=== PATIENT | male | born 1945 | race Caucasian/White ===

== ENCOUNTER 2017-12-27 14:05 | Inpatient (IN) | payer OTHER, BC ==
--- NOTE | 2017-12-27 14:13 | PDOC ---
History of Present Illness - General Chief Complaint: Pain Stated Complaint: ABD PAIN - History of Present Illness Initial Comments: 12/27/17 15:11 The patient is a 72 year old male with a history of HTN, HLD, DM who presents for evaluation of abdominal pain. The patient reports a 3 day history of poorly described upper abdominal pain that initial occurred after eating a Tuna sandwich. He has noted some nausea, but denies any vomiting, however given his continued symptoms, he presented to an urgent care who sent him to the ER for further evaluation. He states that he has never experienced any similar symptoms in the past. He otherwise denies fevers, chills, SOB, chest pain, vomiting, or changes with urination or bowel movements. Past History - Past Medical History Allergies/Adverse Reactions: Allergies Allergy/AdvReac Type Severity Reaction Status Date / Time codeine Allergy Mild Nausea Verified 12/27/17 14:06 Home Medications: Ambulatory Orders metFORMIN HCL [Metformin HCl] 2 gm PO DAILY 03/26/16 Atorvastatin Ca [Lipitor] 40 mg PO HS 12/27/17 Diclofenac Sodium 75 mg PO Q12H PRN 12/27/17 Losartan/Hydrochlorothiazide [Losartan-Hctz 100-25 mg Tab] 1 each PO DAILY 12/27 COPD: No Diabetes: Yes HTN: Yes Hypercholesterolemia: Yes Kidney Stones: Yes - Suicide/Smoking/Psychosocial Hx Smoking History: Never smoked Have you smoked in the past 12 months: No Information on smoking cessation initiated: No Hx Alcohol Use: No Drug/Substance Use Hx: No Substance Use Type: None Review of Systems - Review of Systems Comments:: 12/27/17 15:14 Constitutional: No fevers, chills, fatigue, malaise HEENT: No Rhinorrhea, nasal congestion, visual changes Cardiovascular: No chest pain, syncope, palpitations, lightheadedness Respiratory: No Cough, SOB, Hemoptysis, Gastrointestinal: Abdominal Pain, Nausea. No Vomiting, Constipation, Diarrhea, Melena Genitourinary: No Dysuria, Frequency, Urgency, Hesitancy, Hematuria, Flank pain Musculoskeletal: No Myalgia, arthralgia Skin: No rashes, itching, bruising, pallor Neurologic: No Headache, Dizziness, Numbness, Weakness, or Tingling Psychiatric: No Hallucinations. No SI or HI *Physical Exam - Vital Signs Last Vital Signs Temp Pulse Resp BP Pulse Ox 100.6 F H 74 18 132/76 98 12/27/17 14:05 12/27/17 14:05 12/27/17 14:05 12/27/17 14:05 12/27/17 14:05 - Physical Exam Comments: 12/27/17 15:15 General Appearance: Nourished. No Apparent Distress HEENT: No Pharyngeal Erythema, Tonsillar Exudate, Tonsillar Erythema Neck: No Cervical Lymphadenopathy Respiratory/Chest: Lungs Clear, Normal Breath Sounds. No Crackles, Rales, Rhonchi, Wheezing Cardiovascular: Regular Rhythm, Regular Rate. No Murmur, Gallops, Rubs Gastrointestinal/Abdominal: Normal Bowel Sounds. RUQ tenderness to palpation and epigastric tenderness to palpation. Hepatomegaly noted on exam. No Guarding, Rebound, Musculoskeletal: No CVA Tenderness Extremity: Normal Capillary Refill Integumentary: Normal Color, Dry, Warm Neurologic: Fully Oriented, Alert, Normal Mood/Affect, Normal Response, ED Treatment Course - LABORATORY CBC & Chemistry Diagram: 12/27/17 14:50 12/27/17 14:52 Medical Decision Making - Medical Decision Making 12/27/17 15:16 The patient is a 72 year old male with a history of HTN, HLD, DM who presents for evaluation of abdominal pain. Differential includes but is not limited to: Cholecystitis, Liver Pathology, Gastritis, Pancreatitis, Infectious, Metabolic derangement. Given the patient's history and physical exam, we will obtain a cbc, cmp, lipase, coags, troponin, lactate, blood cultures, gallbladder us to evaluate further. We will treat with iv fluids in the meantime and continue to monitor and reassess while here in the ED. 12/27/17 16:55 CBC demonstrates a wbc to 23.6. CMP demonstrates potassium of 3.1. Troponin is unremarkable. Gallbladder US demonstrates acute cholecystitis as read by our radiologist. Given the patient's symptoms, exam, and results, it is likely his symptoms are due to an acute cholecystitis. ID was consulted and recommended treatment with zosyn. We discussed the case with Dr. Rose with surgery who has been made aware of the case. We discussed the case with the admitting team who accepted the patient for admission. *DC/Admit/Observation/Transfer Diagnosis at time of Disposition: Acute cholecystitis - Discharge Dispostion Condition at time of disposition: Stable Decision to Admit order: Yes - Referrals - Patient Instructions - Post Discharge Activity
--- NOTE | 2017-12-27 14:16 | PDOC ---
Attending Attestation - Resident Resident Name: Kaden Sahu - ED Attending Attestation I have performed the following: I have examined & evaluated the patient, The case was reviewed & discussed with the resident, I agree w/resident's findings & plan, Exceptions are as noted - HPI HPI: 12/27/17 14:51 Sent for evaluation by urgent care center with epigastric and right upper quadrant pain, nausea without vomiting or diarrhea, decreased appetite, and elevated blood sugar. Pain has been present for several days, supposedly beginning after eating a tunafish sandwich. No prior pain of this nature History of koo-ogfsskl-[id number] diabetes for approximately 5 years, poorly controlled on sulfonylurea and metformin. Kidney stones in the distant past. Denies tobacco and alcohol, as well as other nonprescription drugs. Specifically denies past history of hepatitis, or other liver condition, peptic ulcer disease or other stomach problems, abdominal surgery. - Physicial Exam PE: 12/27/17 14:54 Physical exam shows a low-grade fever of 100.9 remainder vital signs normal. No pallor or icterus. ENT clear Abdomen nondistended with normal bowel sounds. There is a small midline ventral hernia that is freely reducible and nontender. Hepatomegaly is present. There is right upper quadrant tenderness to palpation, mild to moderate, without guarding or rebound, no CVAT. No lower quadrant tenderness. - Medical Decision Making 12/27/17 15:03 Assessment: Right upper quadrant pain, nausea, decreased appetite, hepatomegaly. Suggestive of liver inflammation. Possible gallbladder disease Plan: Labs and ultrasound. Further evaluation depending on results. IV fluids and analgesia. 12/27/17 16:05 White blood count 23,000. LFTs normal. Mild hyponatremia and hypokalemia are present. Ultrasound shows gallstones with dilated gallbladder and other signs of acute cholecystitis. Stones are not seen in the bile duct. Infectious disease consult was obtained in the emergency room. Intravenous fluids, potassium, and antibiotics begun. Admitted for observation and surgical consultation. 12/27/17 16:21
[2017-12-27] MEDS ORDERED: SODIUM CHLORIDE 1,000 ML IV STA (14:36)
[2017-12-27 15:07] LABS: ACTIVATED PTT 28.6 SECONDS (25.2-36.5)
[2017-12-27 15:11] LABS: HEMATOCRIT 36.4 % (35.4-49); HEMOGLOBIN 11.8 GM/dl (11.7-16.9); MCH 27.9 pg (25.7-33.7); MCHC 32.4 g/dl (32.0-35.9); MEAN CELL VOLUME 86.3 fl (80-96); MEAN PLT VOLUME 9.8 fl (7.5-11.1); PLATELET COUNT 199 K/MM3 (134-434); RBC 4.22 M/mm3 (4.00-5.60); RDW 13.6 % (11.9-15.9); WHITE BLOOD COUNT 23.6 K/mm3 (4.0-10.8)
[2017-12-27 15:12] LABS: INR 1.28 (0.82-1.09); PROTHROMBIN TIME (PATIENT) 14.3 SEC (10.2-13.0)
[2017-12-27 15:16] LABS: ALBUMIN 3.9 g/dl (3.5-5.0); ALK PHOS 51 U/L (32-92); ANION GAP 7 MMOL/L (8-16); BLOOD UREA NITROGEN 22 mg/dl (7-18); CALCIUM 8.4 mg/dl (8.4-10.2); CHLORIDE 97 mmol/L (98-107); CO2 27 mmol/L (22-28); CREATININE 1.1 mg/dl (0.6-1.3); GLUCOSE,RANDOM 156 mg/dl (74-106); POTASSIUM 3.1 mmol/L (3.5-5.1); SGOT/AST 23 U/L (10-42); SGPT/ALT 24 U/L (10-40); SODIUM 131 mmol/L (136-145); TOT PROT 6.7 g/dl (6.4-8.3)
[2017-12-27] MEDS ORDERED: KCL 10 MEQ IVPB 10 MEQ/100 ML INFUS.BAG IVPB SCH (15:30)
[2017-12-27 15:39] LABS: PLATELET ESTIMATE ADEQUATE
[2017-12-27] MEDS ORDERED: KCL 10 MEQ IVPB 10 MEQ/100 ML INFUS.BAG IVPB ONE (15:51)
[2017-12-27 16:13] LABS: URINE APPEARANCE Clear; URINE BILIRUBIN 1+ (NEGATIVE); URINE COLOR Yellow; URINE GLUCOSE (UA) Trace (NEGATIVE); URINE KETONE 1+ (NEGATIVE); URINE LEUK ESTERASE Negative (NEGATIVE); URINE NITRITE Negative (NEGATIVE); URINE UROBILINOGEN 0.2 (0.2-1.0)
[2017-12-27 16:16] LABS: URINE PROTEIN 2+ (NEGATIVE)
--- NOTE | 2017-12-27 16:17 | CON.ID ---
Consult Consult Specialty:: infectious diseases Reason for Consultation:: cholecystitis - History of Present Illness Chief Complaint: rt upper quadrant pain History of Present Illness: 72 yo male PMH HTN, HLD, DM who presents for evaluation of abdominal pain X 4days . The patient reports a 3 day history of poorly described upper abdominal pain with nausea, but denies any vomiting, however given his continued symptoms, he presented to an urgent care who sent him to the ER for further evaluation. He states that he has never experienced any similar symptoms in the past. no know history of gall stones. has had previous upper and lower endoscopy. no recent history of weight loss. He otherwise denies fevers, chills, SOB, chest pain, vomiting, or changes with urination or bowel movements. we were called to assess. mentions that the pain is quite sever says he does not have any other medical conditions - History Source History Provided By: Patient Limitations to Obtaining History: No Limitations - Alcohol/Substance Use Hx Alcohol Use: No - Smoking History Smoking history: Never smoked Have you smoked in the past 12 months: No Home Medications - Allergies Allergies/Adverse Reactions: Allergies Allergy/AdvReac Type Severity Reaction Status Date / Time codeine Allergy Mild Nausea Verified 12/27/17 14:06 - Home Medications Home Medications: Ambulatory Orders RX: metFORMIN HCL [Metformin HCl] 2 gm PO DAILY 03/26/16 RX: Atorvastatin Ca [Lipitor] 40 mg PO HS 12/27/17 RX: Glimepiride 4 mg PO DAILY 12/27/17 RX: Losartan/Hydrochlorothiazide [Losartan-Hctz 100-25 mg Tab] 1 each PO DAILY 12/27/17 Amoxicillin/Potassium Clav [Augmentin 875-125 Tablet] 1 each PO Q12H #14 tablet 12/30/17 Review of Systems - Review of Systems Constitutional: reports: No Symptoms Eyes: reports: No Symptoms HENT: reports: No Symptoms Neck: reports: No Symptoms Cardiovascular: reports: No Symptoms Respiratory: reports: No Symptoms Gastrointestinal: reports: Abdominal Pain, Nausea Genitourinary: reports: No Symptoms Musculoskeletal: reports: No Symptoms Integumentary: reports: No Symptoms Neurological: reports: No Symptoms Endocrine: reports: No Symptoms Hematology/Lymphatic: reports: No Symptoms Psychiatric: reports: No Symptoms Physical Exam Vital Signs: Vital Signs Temperature 100.6 F H 12/27/17 14:05 Pulse Rate 74 12/27/17 14:05 Respiratory Rate 18 12/27/17 14:05 Blood Pressure 132/76 12/27/17 14:05 O2 Sat by Pulse Oximetry (%) 98 12/27/17 14:05 Constitutional: Yes: Well Nourished, Calm, Mild Distress Eyes: Yes: Conjunctiva Clear HENT: Yes: Atraumatic, Normocephalic Neck: Yes: Supple, Trachea Midline Cardiovascular: Yes: Regular Rate and Rhythm Respiratory: Yes: Regular, CTA Bilaterally Gastrointestinal: Yes: Hypoactive Bowel Sounds, Tenderness, Other (ruq) Musculoskeletal: Yes: WNL Extremities: Yes: WNL Neurological: Yes: Alert, Oriented Psychiatric: Yes: Alert, Oriented Labs: CBC, BMP 12/27/17 14:50 12/27/17 14:52 Imaging - Results Chest X-ray: Report Reviewed, Image Reviewed Ultrasound: Report Reviewed, Image Reviewed Assessment/Plan Problem List - Problems (1) Calculus gallbladder and bile duct w/acute cholecystitis and obstructn Code(s): K80.63 - CALCULUS OF GB AND BILE DUCT W ACUTE CHOLECYST W OBSTRUCTION (2) Leukocytosis Code(s): D72.829 - ELEVATED WHITE BLOOD CELL COUNT, UNSPECIFIED Qualifiers: Leukocytosis type: bandemia Qualified Code(s): D72.825 - Bandemia (3) Fever and chills Code(s): R50.9 - FEVER, UNSPECIFIED (4) Acute cholecystitis Code(s): K81.0 - ACUTE CHOLECYSTITIS (5) HTN (hypertension) Code(s): I10 - ESSENTIAL (PRIMARY) HYPERTENSION Qualifiers: Hypertension type: essential hypertension Qualified Code(s): I10 - Essential (primary) hypertension (6) HLD (hyperlipidemia) Code(s): E78.5 - HYPERLIPIDEMIA, UNSPECIFIED Qualifiers: Hyperlipidemia type: pure hypercholesterolemia Qualified Code(s): E78.00 - Pure hypercholesterolemia, unspecified; E78.0 - Pure hypercholesterolemia (7) Diabetes mellitus Code(s): E11.9 - TYPE 2 DIABETES MELLITUS WITHOUT COMPLICATIONS plan npo abx surgery consult will need surgery hydration rest as per the team
--- NOTE | 2017-12-27 16:47 | CONSULT ---
Consult Consult Specialty:: General Surgery Referred by:: Adelina Reason for Consultation:: Acute Cholecystitis - History of Present Illness Chief Complaint: Abdominal Pain History of Present Illness: 72 yo male PMH HTN, HLD, DM who presents for evaluation of abdominal pain X 4days . The patient reports a 3 day history of poorly described upper abdominal pain that initial occurred after eating a Tuna sandwich. He has noted some nausea, but denies any vomiting, however given his continued symptoms , he presented to an urgent care who sent him to the ER for further evaluation. He states that he has never experienced any similar symptoms in the past. no know history of gall stones. has had previous upper and lower endoscopy. no recent history of weight loss. He otherwise denies fevers, chills, SOB, chest pain, vomiting, or changes with urination or bowel movements. we were called to assess. - History Source History Provided By: Patient, Medical Record Limitations to Obtaining History: No Limitations - Alcohol/Substance Use Hx Alcohol Use: No History of Substance Use: reports: None - Smoking History Smoking history: Never smoked Have you smoked in the past 12 months: No - Social History Usual Living Arrangement: With Spouse ADL: Independent Place of : [facility] History of Recent Travel: No Home Medications - Allergies Allergies/Adverse Reactions: Allergies Allergy/AdvReac Type Severity Reaction Status Date / Time codeine Allergy Mild Nausea Verified 12/27/17 14:06 - Home Medications Home Medications: Ambulatory Orders metFORMIN HCL [Metformin HCl] 2 gm PO DAILY 03/26/16 Atorvastatin Ca [Lipitor] 40 mg PO HS 12/27/17 Diclofenac Sodium 75 mg PO Q12H PRN 12/27/17 Glimepiride 4 mg PO DAILY 12/27/17 Losartan/Hydrochlorothiazide [Losartan-Hctz 100-25 mg Tab] 1 each PO DAILY 12/27 Review of Systems - Review of Systems Constitutional: reports: Chills, Fever. denies: Unintentional Wgt. Loss Eyes: denies: Blurred Vision, Recent Change in Vision HENT: denies: Difficult Swallowing, Throat Pain, Toothache Neck: denies: Pain on Movement, Tenderness Cardiovascular: denies: Chest Pain, Palpitations Respiratory: denies: Cough, SOB Gastrointestinal: reports: Abdominal Pain, Nausea Genitourinary: denies: Burning, Discharge, Dysuria Breasts: reports: No Symptoms Reported. denies: Pain Musculoskeletal: denies: Back Pain, Muscle Pain Integumentary: denies: Eczema, Erythema, Lesions Neurological: denies: Seizure, Syncope Endocrine: denies: Unexplained Weight Gain, Unexplained Weight Loss Hematology/Lymphatic: denies: Easily Bruised, Excessive Bleeding Psychiatric: denies: Anxiety, Depression Physical Exam Vital Signs: Vital Signs Temperature 100.6 F H 12/27/17 14:05 Pulse Rate 74 12/27/17 14:05 Respiratory Rate 18 12/27/17 14:05 Blood Pressure 132/76 12/27/17 14:05 O2 Sat by Pulse Oximetry (%) 98 12/27/17 14:05 Constitutional: Yes: Well Nourished, No Distress, Calm, Other Eyes: Yes: Conjunctiva Clear, EOM Intact HENT: Yes: Atraumatic, Normocephalic Neck: Yes: Supple, Trachea Midline Cardiovascular: Yes: Regular Rate and Rhythm, S1, S2 Respiratory: Yes: Regular, CTA Bilaterally Gastrointestinal: Yes: Normal Bowel Sounds, Soft, Tenderness (RUQ +murphys sign) , Tenderness, Epigastrium, Tenderness, Rebound ...Rectal Exam: Yes: Deferred Renal/: No: CVA Tenderness - Left, CVA Tenderness - Right Musculoskeletal: No: Muscle Pain, Muscle Weakness Extremities: No: Cool, Cyanosis Edema: No Peripheral Pulses WNL: Yes Wound/Incision: Yes: Clean/Dry, Well Approximated Neurological: Yes: Alert, Oriented Psychiatric: Yes: Alert, Oriented Labs: CBC, BMP 12/27/17 14:50 12/27/17 14:52 Imaging - Results Ultrasound: Report Reviewed, Image Reviewed (GB wall thickening) MRI: Pending Problem List - Problems (1) Calculus gallbladder and bile duct w/acute cholecystitis and obstructn Assessment/Plan: 72yo male with Acute calculous cholecystits, CBD 0.7 NPO and IVF hydration IV antibiotics MRCP for confirm no CBD obstruction Glycemic control Discussed with patient risks, benefits and alternatives of laparoscopic possible open cholecystectomy, including but not limited to bleeding, infection , injury to adjacent structures, leak or injury, intraabdominal abscess, incisional hernia, need for further procedures, ; alternatives include antibiotics, delayed or no surgery - risks of this include failure of nonoperative therapy, perforation, sepsis, recurrence, . Patient desires to proceed with operation - will take to OR for above. Informed consent signed for same. Code(s): K80.63 - CALCULUS OF GB AND BILE DUCT W ACUTE CHOLECYST W OBSTRUCTION (2) Leukocytosis Code(s): D72.829 - ELEVATED WHITE BLOOD CELL COUNT, UNSPECIFIED Qualifiers: Leukocytosis type: bandemia Qualified Code(s): D72.825 - Bandemia (3) Fever and chills Code(s): R50.9 - FEVER, UNSPECIFIED (4) Acute cholecystitis Code(s): K81.0 - ACUTE CHOLECYSTITIS (5) HTN (hypertension) Code(s): I10 - ESSENTIAL (PRIMARY) HYPERTENSION Qualifiers: Hypertension type: essential hypertension Qualified Code(s): I10 - Essential (primary) hypertension (6) HLD (hyperlipidemia) Code(s): E78.5 - HYPERLIPIDEMIA, UNSPECIFIED Qualifiers: Hyperlipidemia type: pure hypercholesterolemia Qualified Code(s): E78.00 - Pure hypercholesterolemia, unspecified; E78.0 - Pure hypercholesterolemia (7) Diabetes mellitus Code(s): E11.9 - TYPE 2 DIABETES MELLITUS WITHOUT COMPLICATIONS
[2017-12-27 16:53] LABS: LIPASE 78 U/L (73-393)
[2017-12-27 17:00] LABS: URINE BACTERIA FEW /hpf (NEGATIVE); URINE WBC 0-2 (0-2)
[2017-12-27] MEDS ORDERED: PIPERACILLIN/TAZOBACTAM 3.375 GM VIAL IVPB ONE (17:13)
[2017-12-27] MEDS ORDERED: ACETAMINOPHEN INJECTION 100 ML IVPB ONE (17:13)
[2017-12-27] MEDS ORDERED: ACETAMINOPHEN 1000 MG/100 ML VIAL (NON FORMULARY) IVPB ONE (17:13)
[2017-12-27] MEDS ORDERED: PIPERACILLIN/TAZOB 3.375 GM 3.375 GM in DEXTROSE 5%-WATER - 50 ML IVPB ONE (17:13)
[2017-12-27] MEDS ORDERED: PIPERACILLIN/TAZOB 3.375 GM 3.375 GM/50 ML BAG IVPB SCH (18:00)
[2017-12-27] MEDS ORDERED: POTASSIUM CHLORIDE 10 MEQ in SODIUM CHLORIDE 1,000 ML IVPB SCH (18:30)
[2017-12-27] MEDS: SODIUM CHLORIDE 0.9%/KCL 20 MEQ/1,000 ML INFUS.BAG IV SCH (18:45)
--- NOTE | 2017-12-27 19:56 | PN ---
Teaching Attending Note Name of Resident: Madhavi Kwan ATTENDING PHYSICIAN STATEMENT I saw and evaluated the patient. I reviewed the resident's note and discussed the case with the resident. I agree with the resident's findings and plan as documented. SUBJECTIVE: Patient is a 72 year old man with a history of HTN, HLD, DM who presented to [place] ER for evaluation of abdominal pain. Sonogram showed cholecystitis and he is being transferred to [facility] for surgery. The patient reports a 3 day history of poorly described upper abdominal pain that initial occurred after eating a Tuna sandwich. He has noted some nausea, but denies any vomiting, however given his continued symptoms, he presented to an urgent care who sent him to the ER for further evaluation. He states that he has never experienced any similar symptoms in the past. He otherwise denies fevers, chills, SOB, chest pain, vomiting, or changes with urination or bowel movements. OBJECTIVE: Alert and in no acute distress Vital Signs Period Temp Pulse Resp BP Sys/Tiwari Pulse Ox Last 24 Hr 98.5 F-102 F 74-87 16-18 121-132/58-77 96-99 HEENT: No Jaundice, eye redness or discharge, PERRLA, EOMI. Normocephalic, atraumatic. External ears are normal and hearing is grossly intact. No nasal discharge. Neck: Supple, nontender. No palpable adenopathy or thyromegaly. No JVD Chest: Good effort. Clear to auscultation and percussion. Heart: Regular. No S3, rub or murmur Abdomen: Not distended, soft, RUQ tenderness and no HSM. No rebound or guarding. Normoactive bowel sounds. Ext: Peripheral pulses intact. No leg edema. Skin: Warm and dry. No petechiae, rash or ecchymosis. Neuro: Alert. Oriented x3. CN 2-12 grossly intact. Sensation grossly intact in all four extremities and DTR are symmetric. Current Medications Generic Name Dose Route Start Last Admin Trade Name Freq PRN Reason Stop Dose Admin Piperacillin Sod/Tazobactam Sod 3.375 gm in 50 mls @ 100 mls/hr 12/27/17 18: 00 Zosyn 3.375gm Ivpb (Pre-Docked) IVPB Q8H-IV CRYSTAL Protocol Potassium Chloride/Sodium Chloride 20 meq in 1,000 mls @ 100 mls/hr 12/27/17 18:45 12/27/17 18:45 Ns+20 Meq Kcl - IV 100 mls/hr ASDIR CRYSTAL Administration Home Medications Medication Instructions Recorded metFORMIN HCL [Metformin HCl] 2 gm PO DAILY 03/26/16 Atorvastatin Ca [Lipitor] 40 mg PO HS 12/27/17 Diclofenac Sodium 75 mg PO Q12H PRN 12/27/17 Losartan/Hydrochlorothiazide 1 each PO DAILY 12/27/17 [Losartan-Hctz 100-25 mg Tab] Abnormal Lab Results 12/27/17 12/27/17 12/27/17 14:50 14:50 14:52 WBC 23.6 H Neutrophils % (Manual) 90.0 H Lymphocytes % (Manual) 4.0 L PT with INR 14.3 H INR 1.28 H Sodium 131 L Potassium 3.1 L Chloride 97 L Anion Gap 7 L BUN 22 H Random Glucose 156 H Urine Protein Urine Ketones Urine Blood Urine Bilirubin 12/27/17 15:45 WBC Neutrophils % (Manual) Lymphocytes % (Manual) PT with INR INR Sodium Potassium Chloride Anion Gap BUN Random Glucose Urine Protein 2+ H Urine Ketones 1+ H Urine Blood Trace-lysed H Urine Bilirubin 1+ H ASSESSMENT AND PLAN: 1. Cholecystitis - Confirmed by sonogram. Will continue Zosyn and IV NS. Will be seen by surgery for cholecystectomy. Elevated INR unexplained - will monitor. Hyponatremia and hypokalemia likely due to HCTZ. Hold HCTZ and give KCL. Restrict free water intake. Will check Mg+ and phosphate levels. 2. DM - For now, we will hold the home diabetes drugs and implement sliding scale insulin regimen. Provide comprehensive diabetes care with patient teaching and counseling about the importance of euglycemia, eye care and foot care. 3. DVT prophylaxis - Heparin 5000u sq tid. 4. Advance directives - Full code
[2017-12-27] MEDS ORDERED: LACTATED RINGERS SOLUTION 1,000 ML IV SCH (22:45)
[2017-12-27] MEDS ORDERED: ACETAMINOPHEN 1000 MG/100 ML VIAL (NON FORMULARY) IVPB PRN (23:07)
[2017-12-27 23:55] VITALS: BMI 28.1
--- NOTE | 2017-12-28 01:25 | HP ---
CHIEF COMPLAINT:RUQ pain PCP: HISTORY OF PRESENT ILLNESS: Patient is a 72 year old male with past medical history of DM, HTN, and HLD presented with RUQ pain one day ago. Patient noted sudden onset, cramping, 7/10 RUQ pain Tuesday night. Pain was constant, no aggravating/alleviating factors. He denies vomiting, diarrhea, fever and chills. Few hours prior, patient went to urgent care due to persistence of pain where he was told to go to the ED for further evaluation. Patient was seen at [facility] ED where RUQ US showed acute calculus cholecytitis. Surgery was consulted and patient was transferred to [facility] for cholecystectomy. Patient denies chest pain, SOB, palpitations, diarrhea, constipation, fever, chills. Denies any recent travel or sick contacts. ER course was notable for: (1) (2) (3) Recent Travel:denies any recent travel PAST MEDICAL HISTORY: DM Hypertension Hyperlipidemia PAST SURGICAL HISTORY: Kidney stone removal, R (1993) Social History: Smoking:nonsmoker Alcohol:non EtOH drinker Drugs: denies illicit drug use Family History:[place] Allergies codeine Allergy (Mild, Verified 12/27/17 14:06) Nausea HOME MEDICATIONS: Home Medications Medication Instructions Recorded metFORMIN HCL [Metformin HCl] 2 gm PO DAILY 03/26/16 Atorvastatin Ca [Lipitor] 40 mg PO HS 12/27/17 Diclofenac Sodium 75 mg PO Q12H PRN 12/27/17 Glimepiride 4 mg PO DAILY 12/27/17 Losartan/Hydrochlorothiazide 1 each PO DAILY 12/27/17 [Losartan-Hctz 100-25 mg Tab] REVIEW OF SYSTEMS CONSTITUTIONAL: Absent: fever, chills, diaphoresis, generalized weakness, malaise, loss of appetite, weight change HEENT: Absent: rhinorrhea, nasal congestion, throat pain, throat swelling, difficulty swallowing, mouth swelling, ear pain, eye pain, visual changes CARDIOVASCULAR: Absent: chest pain, syncope, palpitations, irregular heart rate, lightheadedness , peripheral edema RESPIRATORY: Absent: cough, shortness of breath, dyspnea with exertion, orthopnea, wheezing, stridor, hemoptysis GASTROINTESTINAL:abdominal pain Absent: abdominal distension, nausea, vomiting, diarrhea, constipation, melena, hematochezia GENITOURINARY: Absent: dysuria, frequency, urgency, hesitancy, hematuria, flank pain, genital pain MUSCULOSKELETAL: Absent: myalgia, arthralgia, joint swelling, back pain, neck pain SKIN: Absent: rash, itching, pallor HEMATOLOGIC/IMMUNOLOGIC: Absent: easy bleeding, easy bruising, lymphadenopathy, frequent infections ENDOCRINE: Absent: unexplained weight gain, unexplained weight loss, heat intolerance, cold intolerance NEUROLOGIC: Absent: headache, focal weakness or paresthesias, dizziness, unsteady gait, seizure, mental status changes, bladder or bowel incontinence PSYCHIATRIC: Absent: anxiety, depression, suicidal or homicidal ideation, hallucinations. PHYSICAL EXAMINATION Vital Signs - 24 hr 12/27/17 12/27/17 12/27/17 14:05 17:10 18:00 Temperature 100.6 F H 102 F H 98.5 F Pulse Rate 74 Pulse Rate [ 87 86 Left Apical] Respiratory 18 16 17 Rate Blood Pressure 132/76 Blood Pressure 121/58 126/77 [Right Arm] O2 Sat by Pulse 98 99 96 Oximetry (%) 12/27/17 12/27/17 12/27/17 20:30 21:30 23:14 Temperature 98.8 F 98.4 F Pulse Rate 79 72 Pulse Rate [ 79 Left Apical] Respiratory 18 20 Rate Blood Pressure 132/68 148/69 Blood Pressure 132/68 [Right Arm] O2 Sat by Pulse 97 97 Oximetry (%) 12/28/17 00:16 Temperature 102.7 F H Pulse Rate Pulse Rate [ Left Apical] Respiratory Rate Blood Pressure Blood Pressure [Right Arm] O2 Sat by Pulse Oximetry (%) GENERAL: Awake, alert, and fully oriented, in no acute distress. HEAD: Normal with no signs of trauma. EYES: PERRLA, EOMI, sclera anicteric, conjunctiva clear. No lid lag. EARS, NOSE, THROAT: Ears normal, nares patent, oropharynx clear without exudates. Moist mucous membranes. NECK: Normal range of motion, supple without lymphadenopathy, JVD, or masses. LUNGS: Breath sounds equal, clear to auscultation bilaterally. No wheezes, and no crackles. No accessory muscle use. HEART: Regular rate and rhythm, normal S1 and S2 without murmur, rub or gallop. ABDOMEN: Soft LUQ/LLQ, +tenderness RUQ, mildly distended RUQ/RLQ, normoactive bowel sounds, no guarding, no rebound, no masses. No hepatomegaly or splenomegaly. MUSCULOSKELETAL: Normal range of motion at all joints. No bony deformities or tenderness. No CVA tenderness. UPPER EXTREMITIES: 2+ pulses, warm, well-perfused. No cyanosis. No clubbing. No peripheral edema. LOWER EXTREMITIES: 2+ pulses, warm, well-perfused. No calf tenderness. No peripheral edema. NEUROLOGICAL: Cranial nerves II-XII intact. Normal speech. Normal gait. PSYCHIATRIC: Cooperative. Good eye contact. Appropriate mood and affect. SKIN: Warm, dry, normal turgor, no rashes or lesions. Laboratory Results - last 24 hr 12/27/17 12/27/17 12/27/17 14:50 14:50 14:52 WBC 23.6 H RBC 4.22 Hgb 11.8 Hct 36.4 MCV 86.3 MCH 27.9 MCHC 32.4 RDW 13.6 Plt Count 199 MPV 9.8 Absolute Neuts (auto) 21.2 Neutrophils % No Result Required. Neutrophils % (Manual) 90.0 H Lymphocytes % No Result Required. Lymphocytes % (Manual) 4.0 L Monocytes % (Manual) 6 Platelet Estimate Adequate PT with INR 14.3 H INR 1.28 H PTT (Actin FS) 28.6 Sodium Potassium Chloride Carbon Dioxide Anion Gap BUN Creatinine Creat Clearance w eGFR Random Glucose Lactic Acid Calcium Total Bilirubin AST ALT Alkaline Phosphatase Creatine Kinase Troponin I < 0.03 Total Protein Albumin Lipase Urine Color Urine Appearance Urine pH Ur Specific [place] Urine Protein Urine Glucose (UA) Urine Ketones Urine Blood Urine Nitrite Urine Bilirubin Urine Urobilinogen Ur Leukocyte Esterase Urine RBC Urine WBC Urine Bacteria 12/27/17 12/27/17 12/27/17 14:52 14:52 15:30 WBC RBC Hgb Hct MCV MCH MCHC RDW Plt Count MPV Absolute Neuts (auto) Neutrophils % Neutrophils % (Manual) Lymphocytes % Lymphocytes % (Manual) Monocytes % (Manual) Platelet Estimate PT with INR INR PTT (Actin FS) Sodium 131 L Potassium 3.1 L Chloride 97 L Carbon Dioxide 27 Anion Gap 7 L BUN 22 H Creatinine 1.1 Creat Clearance w eGFR > 60 Random Glucose 156 H Lactic Acid 1.8 Calcium 8.4 Total Bilirubin 1.0 AST 23 ALT 24 Alkaline Phosphatase 51 Creatine Kinase 45 Troponin I Total Protein 6.7 Albumin 3.9 Lipase 78 Urine Color Urine Appearance Urine pH Ur Specific [place] Urine Protein Urine Glucose (UA) Urine Ketones Urine Blood Urine Nitrite Urine Bilirubin Urine Urobilinogen Ur Leukocyte Esterase Urine RBC Urine WBC Urine Bacteria 12/27/17 15:45 WBC RBC Hgb Hct MCV MCH MCHC RDW Plt Count MPV Absolute Neuts (auto) Neutrophils % Neutrophils % (Manual) Lymphocytes % Lymphocytes % (Manual) Monocytes % (Manual) Platelet Estimate PT with INR INR PTT (Actin FS) Sodium Potassium Chloride Carbon Dioxide Anion Gap BUN Creatinine Creat Clearance w eGFR Random Glucose Lactic Acid Calcium Total Bilirubin AST ALT Alkaline Phosphatase Creatine Kinase Troponin I Total Protein Albumin Lipase Urine Color Yellow Urine Appearance Clear Urine pH 5.0 Ur Specific [place] 1.020 Urine Protein 2+ H Urine Glucose (UA) Trace Urine Ketones 1+ H Urine Blood Trace-lysed H Urine Nitrite Negative Urine Bilirubin 1+ H Urine Urobilinogen 0.2 Ur Leukocyte Esterase Negative Urine RBC 2-5 Urine WBC 0-2 Urine Bacteria Few CBC, BMP 12/27/17 14:50 12/27/17 14:52 ASSESSMENT/PLAN: Patient is a 72 year old male with past medical history of DM, HTN, and HLD presented with sudden RUQ pain one day ago. #Acute Cholecystitis: -RUQ US showed acute calculus cholecytitis, CBD appears slightly dilated -Dr. Rose consulted. Patient is for cholecystectomy. -EKG, coag studies, type & screen, NPO ordered. -Dr. Kellogg consult appreciated. -Will continue to correct hypoNa and hypoK with KCl/NS -Zosyn 3.375gm started at the ED, will continue q8h #DM: chronic, glu 156 -hold home medications -start sliding scale insulin -monitor BGM ACHS #Hypertension: chronic -continue Losartan/HCTZ #FEN -IV NS (0.9%) at 75 ml/hr -hypoNa, hypoK-- given NS/KCl, routine BMP monitoring -NPO for now #Prophylaxis -Heparin 5000 units sq tid #Disposition -admit to med-surg -full code Visit type - Emergency Visit Emergency Visit: Yes ED Registration Date: 12/27/17 Care time: The patient presented to the Emergency Department on the above date and was hospitalized for further evaluation of their emergent condition. - New Patient This patient is new to me today: Yes Date on this admission: 12/28/17 - Critical Care Critical Care patient: No Hospitalist Screening - Colonoscopy Questionnaire Colonoscopy Questionnaire: Colonoscopy Questionnaire - Patient: 50 - 75 years old and never had a screening colonoscopy: Unknown History of colon or rectal polyps, or CA: Unknown History of IBD, Crohn's disease or UC: Unknown History of abdominal radiation therapy as a child: Unknown - Relative: 1 with colon or rectal CA, or polyps at age 60 or younger: Unknown Colon or rectal CA diagnosed at age 45 or younger: Unknown Multiple relatives with colon or rectal CA: Unknown - Outcome: Screening Result: Negative Screen
[2017-12-28] MEDS ORDERED: PIPERACILLIN/TAZOBACTAM 3.375 GM VIAL IVPB ONE ×2 (01:45→09:27)
[2017-12-28] MEDS ORDERED: DEXTROSE 5%-WATER - 50 ML IVPB ONE ×2 (01:45→09:27)
[2017-12-28] MEDS ORDERED: PIPERACILLIN/TAZOB 3.375 GM 3.375 GM in DEXTROSE 5%-WATER - 50 ML IVPB SCH (02:00)
[2017-12-28] MEDS: PIPERACILLIN/TAZOB 3.375 GM 3.375 GM in DEXTROSE 5%-WATER - 50 ML IVPB SCH ×3 (02:17→20:08)
[2017-12-28] MEDS: SODIUM CHLORIDE 0.9%/KCL 20 MEQ/1,000 ML INFUS.BAG IV SCH (04:50)
[2017-12-28] MEDS: HEPARIN NA (PORCINE) 5,000 UNITS/ML 1ML VIAL SQ SCH ×3 (05:47→22:06)
[2017-12-28] MEDS: INSULIN SLIDING SCALE (NOVOLOG) 1 VIAL SQ SCH ×2 (06:33→11:02)
[2017-12-28 08:51] LABS: HEMATOCRIT 34.3 % (35.4-49); HEMOGLOBIN 10.8 GM/dL (11.7-16.9); MCH 26.9 pg (25.7-33.7); MCHC 31.6 g/dl (32.0-35.9); MEAN PLT VOLUME 9.6 fl (7.5-11.1); PLATELET COUNT 164 K/MM3 (134-434); RBC 4.03 M/mm3 (4.00-5.60); RDW 13.9 % (11.9-15.9); WHITE BLOOD COUNT 20.4 K/mm3 (4.0-10.0)
[2017-12-28 10:11] LABS: CHLORIDE 105 mmol/L (98-107); POTASSIUM 3.6 mmol/L (3.5-5.1); SODIUM 141 mmol/L (136-145)
[2017-12-28 10:17] LABS: ANION GAP 14 MMOL/L (8-16); BLOOD UREA NITROGEN 16 mg/dL (7-18); CALCIUM 8.3 mg/dL (8.5-10.1); CO2 22 mmol/L (21-32); CREATININE 0.9 mg/dL (0.7-1.3); GLUCOSE,RANDOM 107 mg/dL (74-106); MAGNESIUM 2.2 mg/dL (1.8-2.4); PHOSPHOROUS 2.8 mg/dL (2.5-4.9)
--- NOTE | 2017-12-28 10:39 | PN ---
Physical Exam: SUBJECTIVE: Patient seen and examined at bedside, no overnight issues. Reports pain improved. Hungry as PO intake has been reduced for several days and Pt is now NPO pending Sx. OBJECTIVE: Vital Signs Period Temp Pulse Resp BP Sys/Tiwari Pulse Ox Last 24 Hr 98.4 F-102.7 F 69-87 16-20 121-150/58-77 96-99 GENERAL: Awake, alert, and fully oriented, in no acute distress. HEAD: Normal with no signs of trauma. EYES: PERRLA, EOMI, sclera anicteric, conjunctiva clear. No lid lag. EARS, NOSE, THROAT: Ears normal, nares patent, oropharynx clear without exudates. Moist mucous membranes. NECK: Normal range of motion, supple without lymphadenopathy, JVD, or masses. LUNGS: Breath sounds equal, clear to auscultation bilaterally. No wheezes, and no crackles. No accessory muscle use. HEART: Regular rate and rhythm, normal S1 and S2 without murmur, rub or gallop. ABDOMEN: Soft LUQ/LLQ, +tenderness RUQ, mildly distended RUQ/RLQ, normoactive bowel sounds, no guarding, no rebound, no masses. No hepatomegaly or splenomegaly. MUSCULOSKELETAL: Normal range of motion at all joints. No bony deformities or tenderness. No CVA tenderness. UPPER EXTREMITIES: 2+ pulses, warm, well-perfused. No cyanosis. No clubbing. No peripheral edema. LOWER EXTREMITIES: 2+ pulses, warm, well-perfused. No calf tenderness. No peripheral edema. NEUROLOGICAL: Cranial nerves II-XII intact. Normal speech. Normal gait. PSYCHIATRIC: Cooperative. Good eye contact. Appropriate mood and affect. SKIN: Warm, dry, normal turgor, no rashes or lesions. Laboratory Results - last 24 hr 12/27/17 12/27/17 12/27/17 14:50 14:50 14:52 WBC 23.6 H RBC 4.22 Hgb 11.8 Hct 36.4 MCV 86.3 MCH 27.9 MCHC 32.4 RDW 13.6 Plt Count 199 MPV 9.8 Absolute Neuts (auto) 21.2 Neutrophils % No Result Required. Neutrophils % (Manual) 90.0 H Lymphocytes % No Result Required. Lymphocytes % (Manual) 4.0 L Monocytes % (Manual) 6 Platelet Estimate Adequate PT with INR 14.3 H INR 1.28 H PTT (Actin FS) 28.6 Sodium Potassium Chloride Carbon Dioxide Anion Gap BUN Creatinine Creat Clearance w eGFR POC Glucometer Random Glucose Lactic Acid Calcium Total Bilirubin AST ALT Alkaline Phosphatase Creatine Kinase Troponin I < 0.03 Total Protein Albumin Lipase Urine Color Urine Appearance Urine pH Ur Specific [place] Urine Protein Urine Glucose (UA) Urine Ketones Urine Blood Urine Nitrite Urine Bilirubin Urine Urobilinogen Ur Leukocyte Esterase Urine RBC Urine WBC Urine Bacteria Blood Type Antibody Screen 12/27/17 12/27/17 12/27/17 14:52 14:52 15:30 WBC RBC Hgb Hct MCV MCH MCHC RDW Plt Count MPV Absolute Neuts (auto) Neutrophils % Neutrophils % (Manual) Lymphocytes % Lymphocytes % (Manual) Monocytes % (Manual) Platelet Estimate PT with INR INR PTT (Actin FS) Sodium 131 L Potassium 3.1 L Chloride 97 L Carbon Dioxide 27 Anion Gap 7 L BUN 22 H Creatinine 1.1 Creat Clearance w eGFR > 60 POC Glucometer Random Glucose 156 H Lactic Acid 1.8 Calcium 8.4 Total Bilirubin 1.0 AST 23 ALT 24 Alkaline Phosphatase 51 Creatine Kinase 45 Troponin I Total Protein 6.7 Albumin 3.9 Lipase 78 Urine Color Urine Appearance Urine pH Ur Specific [place] Urine Protein Urine Glucose (UA) Urine Ketones Urine Blood Urine Nitrite Urine Bilirubin Urine Urobilinogen Ur Leukocyte Esterase Urine RBC Urine WBC Urine Bacteria Blood Type Antibody Screen 12/27/17 12/28/17 12/28/17 15:45 05:34 07:56 WBC RBC Hgb Hct MCV MCH MCHC RDW Plt Count MPV Absolute Neuts (auto) Neutrophils % Neutrophils % (Manual) Lymphocytes % Lymphocytes % (Manual) Monocytes % (Manual) Platelet Estimate PT with INR INR PTT (Actin FS) Sodium Potassium Chloride Carbon Dioxide Anion Gap BUN Creatinine Creat Clearance w eGFR POC Glucometer 102 Random Glucose Lactic Acid Calcium Total Bilirubin AST ALT Alkaline Phosphatase Creatine Kinase Troponin I Total Protein Albumin Lipase Urine Color Yellow Urine Appearance Clear Urine pH 5.0 Ur Specific [place] 1.020 Urine Protein 2+ H Urine Glucose (UA) Trace Urine Ketones 1+ H Urine Blood Trace-lysed H Urine Nitrite Negative Urine Bilirubin 1+ H Urine Urobilinogen 0.2 Ur Leukocyte Esterase Negative Urine RBC 2-5 Urine WBC 0-2 Urine Bacteria Few Blood Type A POSITIVE Antibody Screen Negative 12/28/17 12/28/17 07:56 07:56 WBC 20.4 H RBC 4.03 Hgb 10.8 L Hct 34.3 L MCV 85.0 MCH 26.9 MCHC 31.6 L RDW 13.9 Plt Count 164 MPV 9.6 Absolute Neuts (auto) Neutrophils % Neutrophils % (Manual) Lymphocytes % Lymphocytes % (Manual) Monocytes % (Manual) Platelet Estimate PT with INR INR PTT (Actin FS) Sodium 141 Potassium 3.6 Chloride 105 Carbon Dioxide Anion Gap BUN Creatinine Creat Clearance w eGFR POC Glucometer Random Glucose Lactic Acid Calcium Total Bilirubin AST ALT Alkaline Phosphatase Creatine Kinase Troponin I Total Protein Albumin Lipase Urine Color Urine Appearance Urine pH Ur Specific [place] Urine Protein Urine Glucose (UA) Urine Ketones Urine Blood Urine Nitrite Urine Bilirubin Urine Urobilinogen Ur Leukocyte Esterase Urine RBC Urine WBC Urine Bacteria Blood Type Antibody Screen Active Medications Generic Name Dose Route Start Last Admin Trade Name Freq PRN Reason Stop Dose Admin Acetaminophen 1,000 mg 12/27/17 23:07 12/28/17 00:11 Ofirmev Injection - IVPB 1,000 mg Q6H PRN Administration PAIN OR FEVER Heparin Sodium (Porcine) 5,000 unit 12/28/17 06:00 12/28/17 05:47 Heparin - SQ 5,000 unit TID CRYSTAL Administration Potassium Chloride/Sodium Chloride 20 meq in 1,000 mls @ 100 mls/hr 12/27/17 18:45 12/28/17 04:50 Ns+20 Meq Kcl - IV 12/28/17 14:59 100 mls/hr ASDIR CRYSTAL Administration Sodium Chloride 1,000 mls @ 75 mls/hr 12/28/17 15:00 Normal Saline - IV ASDIR CRYSTAL Piperacillin Sod/Tazobactam 50 mls @ 100 mls/hr 12/28/17 02:00 12/28/17 09:29 Sod 3.375 gm/ Dextrose IVPB 100 mls/hr Q8H-IV CRYSTAL Administration Insulin Aspart 1 vial 12/28/17 07:00 12/28/17 06:33 Novolog Vial Sliding Scale - SQ Not Given ACHS CRYSTAL Protocol ASSESSMENT/PLAN: Patient is a 72 year old male with past medical history of DM, HTN, and HLD presented with sudden RUQ pain beginning 12/25. #Acute Cholecystitis: -fluctuating fevers, 102.7 overnight now 100.8 -WBC 23.6 --> 20.4 -RUQ US showed acute calculus cholecytitis, CBD appears slightly dilated -Dr. Rose consulted, surgery deferred for concern of cholangitis given fever and leukocytosis -MRCP showed no choledocholithiasis, awaiting further surgical recommendations -EKG, coag studies, type & screen, NPO ordered. -Dr. Kellogg consult appreciated. -Will continue to correct hypoNa and hypoK with KCl/NS -Zosyn 3.375gm q8h #DM: chronic, glu 156 -hold home medications -start sliding scale insulin -monitor BGM ACHS #Hypertension: chronic -continue home Losartan 100/HCTZ 25 (have to give as Losartan 50/HCTZ 12.5 x 2 per pharmacy) #FEN -IV NS+ KCl 20 mEq -routine BMP monitoring -NPO pending Sx #Prophylaxis -Heparin 5000 units sq tid #Disposition -admit to med-surg -full code Visit type - Emergency Visit Emergency Visit: No - New Patient This patient is new to me today: Yes Date on this admission: 12/28/17 - Critical Care Critical Care patient: No
[2017-12-28 13:43] LABS: ALBUMIN 3.2 g/dl (3.4-5.0); BILIRUBIN,DIRECT 0.2 mg/dL (0.0-0.2); BILIRUBIN,TOTAL 0.6 mg/dL (0.2-1.0); TOT PROT 6.3 g/dl (6.4-8.2)
--- NOTE | 2017-12-28 14:02 | PN ---
Progress Note, Physician History of Present Illness: pain better still with pain mrcp done - Current Medication List Current Medications: Active Medications Acetaminophen (Ofirmev Injection -) 1,000 mg IVPB Q6H PRN PRN Reason: PAIN OR FEVER Last Admin: 12/28/17 00:11 Dose: 1,000 mg HCTZ/Losartan Potassium (Hyzaar -) 2 tab PO DAILY [facility] Heparin Sodium (Porcine) (Heparin -) 5,000 unit SQ TID CRYSTAL Last Admin: 12/28/17 13:42 Dose: Not Given Potassium Chloride/Sodium Chloride (Ns+20 Meq Kcl -) 20 meq in 1,000 mls @ 100 mls/hr IV ASDIR CRYSTAL Stop: 12/28/17 14:59 Last Admin: 12/28/17 04:50 Dose: 100 mls/hr Sodium Chloride (Normal Saline -) 1,000 mls @ 75 mls/hr IV ASDIR CRYSTAL Piperacillin Sod/Tazobactam (Sod 3.375 gm/ Dextrose) 50 mls @ 100 mls/hr IVPB Q8H-IV CRYSTAL Last Admin: 12/28/17 09:29 Dose: 100 mls/hr Insulin Aspart (Novolog Vial Sliding Scale -) 1 vial SQ ACHS [facility]; Protocol Last Admin: 12/28/17 11:02 Dose: Not Given - Objective Vital Signs: Vital Signs Temperature 100.8 F H 12/28/17 09:32 Pulse Rate 75 12/28/17 09:32 Respiratory Rate 18 12/28/17 09:32 Blood Pressure 150/75 12/28/17 09:32 O2 Sat by Pulse Oximetry (%) 94 L 12/28/17 09:00 Constitutional: Yes: Calm, Mild Distress Cardiovascular: Yes: Regular Rate and Rhythm Respiratory: Yes: Regular, CTA Bilaterally Gastrointestinal: Yes: Soft, Tenderness Musculoskeletal: Yes: WNL Extremities: Yes: WNL Neurological: Yes: Alert, Oriented Psychiatric: Yes: Alert, Oriented Labs: CBC, BMP 12/28/17 07:56 12/28/17 07:56 INR, PTT INR 1.28 (0.82-1.09) H 12/27/17 14:50 - ....Imaging MRI: Report Reviewed, Image Reviewed Assessment/Plan juan luis List - Problems (1) Calculus gallbladder and bile duct w/acute cholecystitis and obstructn Code(s): K80.63 - CALCULUS OF GB AND BILE DUCT W ACUTE CHOLECYST W OBSTRUCTION (2) Leukocytosis Code(s): D72.829 - ELEVATED WHITE BLOOD CELL COUNT, UNSPECIFIED Qualifiers: Leukocytosis type: bandemia Qualified Code(s): D72.825 - Bandemia (3) Fever and chills Code(s): R50.9 - FEVER, UNSPECIFIED (4) Acute cholecystitis Code(s): K81.0 - ACUTE CHOLECYSTITIS (5) HTN (hypertension) Code(s): I10 - ESSENTIAL (PRIMARY) HYPERTENSION Qualifiers: Hypertension type: essential hypertension Qualified Code(s): I10 - Essential (primary) hypertension (6) HLD (hyperlipidemia) Code(s): E78.5 - HYPERLIPIDEMIA, UNSPECIFIED Qualifiers: Hyperlipidemia type: pure hypercholesterolemia Qualified Code(s): E78.00 - Pure hypercholesterolemia, unspecified; E78.0 - Pure hypercholesterolemia (7) Diabetes mellitus Code(s): E11.9 - TYPE 2 DIABETES MELLITUS WITHOUT COMPLICATIONS plan continue as per surgery continue current mgmt abx rest as per the team
[2017-12-28] MEDS ORDERED: SODIUM CHLORIDE 1,000 ML IV SCH ×2 (15:00→18:30)
--- NOTE | 2017-12-28 15:40 | PN ---
Progress Note (short form) - Note Progress Note: The pt was taken to the OR for cholecystectomy prior to GI service consult. GI will remain available to evaluate should it be necessary.
--- NOTE | 2017-12-28 15:44 | PN ---
Teaching Attending Note Name of Resident: Kaden Borrero ATTENDING PHYSICIAN STATEMENT I saw and evaluated the patient. I reviewed the resident's note and discussed the case with the resident. I agree with the resident's findings and plan as documented. SUBJECTIVE: feverearlier today . No abd pain at time of evaluation . No SOB . OBJECTIVE: NAD Cv: RRR, No MRG Lungs: CTAB Ext : no edema ABd: soft, TTP in RUQ, no rebound tenderness or guarding. ASSESSMENT AND PLAN: 72 y/o man with h/o HTN, HLP, And DM , who presented with abd pain and was found to have sepsis with evidence of cholecystitis. 1- Acute cholecystitis : MRCP reviewed. No CBD dilation or stones. - d/w Dr. Lane - [facility] - [facility] for now. will decide on Abx after sx - NPO . possible diet after procedure - IVF 2- HTN: cont home meds. losartan/HCTz 3- DM : hole po meds and cont SSI . dc HS coverage HLOC. possible dc in am
[2017-12-28] MEDS ORDERED: INSULIN SLIDING SCALE (NOVOLOG) 1 VIAL SQ SCH (16:30)
[2017-12-28] MEDS ORDERED: ROCURONIUM BROMIDE 50 MG/5 ML VIAL ONE (16:36)
[2017-12-28] MEDS ORDERED: fentaNYL CITRATE 250 MCG/5 ML VIAL ONE (16:36)
[2017-12-28] MEDS ORDERED: LIDOCAINE HCL/PF 2% SDV 5ML VIAL ONE (16:36)
[2017-12-28] MEDS ORDERED: MIDAZOLAM HCL 2 MG/2 ML SINGLE DOSE VIAL ONE (16:37)
[2017-12-28] MEDS ORDERED: PROPOFOL 20 ML ONE (16:37)
[2017-12-28] MEDS ORDERED: cefOXitin SODIUM 1 GM VIAL (RESTRICTED TO ID) IVPB ONE (17:14)
[2017-12-28] MEDS ORDERED: DEXAMETHASONE SOD PHOSPHATE 4 MG/1 ML VIAL ONE (17:32)
[2017-12-28] MEDS ORDERED: NEOSTIGMINE METHYLSULFATE 0.5 MG/ML - 10 ML MDV ONE (17:52)
[2017-12-28] MEDS ORDERED: GLYCOPYRROLATE 0.2 MG/1 ML VIAL ONE (17:58)
[2017-12-28] MEDS ORDERED: BUPIVACAINE HCL/PF 0.5% (5MG/ML) 10 ML VIAL ONE (17:58)
[2017-12-28] MEDS ORDERED: ACETAMINOPHEN INJECTION 100 ML IVPB ONE (18:15)
[2017-12-28] MEDS ORDERED: ONDANSETRON 4 MG/2 ML VIAL IVPUSH PRN ×2 (18:16→20:46)
[2017-12-28] MEDS ORDERED: BUPIVACAINE HCL/PF 0.5% (5MG/ML) 10 ML VIAL IJ ONE (18:20)
[2017-12-28] MEDS: ACETAMINOPHEN 1000 MG/100 ML VIAL (NON FORMULARY) IVPB PRN (18:25)
[2017-12-28] MEDS ORDERED: ACETAMINOPHEN 1000 MG/100 ML VIAL (NON FORMULARY) IVPB ONE (18:28)
[2017-12-28] MEDS ORDERED: LACTATED RINGERS SOLUTION 1,000 ML IV SCH (18:30)
--- NOTE | 2017-12-28 18:33 | OP ---
Operative Note - Note: Operative Date: 12/28/17 Pre-Operative Diagnosis: Acute cholecystitis Operation: Laparoscopic Cholecystectomy Findings: Gangrenous gallbladder and 60ml green bile decompressed, critical view identified. all counts were correct. Post-Operative Diagnosis: Other (Acute Gangrenous cholecystitis) Surgeon: Mickey Rose Superintendent [employer]: Laurie Garcia Anesthesiologist/WELLNESS GUIDE: Yonathan Jacob Anesthesia: General, Local (0.5% marcaine ) Specimens Removed: gall bladder Estimated Blood Loss (mls): 20 Fluid Volume Replaced (mls): 700 Operative Report Dictated: Yes
[2017-12-28] MEDS: SODIUM CHLORIDE 1,000 ML IV SCH (20:06)
--- NOTE | 2017-12-28 20:17 | EKG ---
Test Reason : Blood Pressure : / mmHG Vent. Rate : 074 BPM Atrial Rate : 074 BPM P-R Int : 162 ms QRS Dur : 096 ms QT Int : 406 ms P-R-T Axes : 047 023 020 degrees QTc Int : 450 ms NORMAL SINUS RHYTHM POSSIBLE LEFT ATRIAL ENLARGEMENT INCOMPLETE RIGHT BUNDLE BRANCH BLOCK BORDERLINE ECG NO PREVIOUS ECGS AVAILABLE Confirmed by COLE LOPEZ, KRYSTYNA ([id number]) on 12/28/2017 8:17:29 PM Referred By: DR TEAGUE Confirmed By:KRYSTYNA GALVAN MD
[2017-12-28] MEDS ORDERED: MORPHINE SULFATE 2 MG/ML VIAL IVPUSH ONE (20:45)
[2017-12-29] MEDS: ACETAMINOPHEN 1000 MG/100 ML VIAL (NON FORMULARY) IVPB PRN ×2 (00:39→06:41)
[2017-12-29] MEDS ORDERED: PIPERACILLIN/TAZOBACTAM 3.375 GM VIAL IVPB ONE ×3 (02:01→18:05)
[2017-12-29] MEDS ORDERED: DEXTROSE 5%-WATER - 50 ML IVPB ONE ×3 (02:01→18:05)
[2017-12-29] MEDS: PIPERACILLIN/TAZOB 3.375 GM 3.375 GM in DEXTROSE 5%-WATER - 50 ML IVPB SCH ×3 (02:07→18:06)
[2017-12-29] MEDS: SODIUM CHLORIDE 1,000 ML IV SCH ×3 (05:50→21:58)
[2017-12-29] MEDS: HEPARIN NA (PORCINE) 5,000 UNITS/ML 1ML VIAL SQ SCH ×3 (06:41→21:58)
[2017-12-29] MEDS: INSULIN SLIDING SCALE (NOVOLOG) 1 VIAL SQ SCH ×3 (06:45→18:03)
[2017-12-29 09:07] LABS: BASO % 0.1 % (0-2.0); HEMATOCRIT 34.3 % (35.4-49); HEMOGLOBIN 11.2 GM/dL (11.7-16.9); LYMPH % 6.2 % (8-40); MCH 27.5 pg (25.7-33.7); MCHC 32.5 g/dl (32.0-35.9); MEAN CELL VOLUME 84.3 fl (80-96); MEAN PLT VOLUME 9.5 fl (7.5-11.1); MONO % 6.3 % (3.8-10.2); NEUT % 87.4 % (42.8-82.8); PLATELET COUNT 214 K/MM3 (134-434); RBC 4.07 M/mm3 (4.00-5.60); RDW 14.1 % (11.9-15.9); WHITE BLOOD COUNT 14.5 K/mm3 (4.0-10.0)
[2017-12-29] MEDS ORDERED: PT OWN MED DRAWER 7, Y5N ONE (09:11)
[2017-12-29 09:40] LABS: CHLORIDE 106 mmol/L (98-107); POTASSIUM 4.2 mmol/L (3.5-5.1); SODIUM 140 mmol/L (136-145)
[2017-12-29] MEDS ORDERED: LOSARTAN 50MG/HCTZ 12.5MG 1 TAB (FP) PO SCH (10:00)
--- NOTE | 2017-12-29 10:03 | PN ---
Progress Note (short form) - Note Progress Note: Anesthesia Post-op Note Pt s/p laparoscopic cholecystectomy on 12/28/17 under [facility]. Pt reports pain tolerable. Denies any nausea/vomiting. Vital Signs Temperature 98.8 F 12/29/17 06:00 Pulse Rate 59 L 12/29/17 06:00 Respiratory Rate 18 12/29/17 06:00 Blood Pressure 144/80 12/29/17 06:00 O2 Sat by Pulse Oximetry (%) 96 12/28/17 21:00 Continue present management per primary team. Bowel regimen while on pain meds. OOB. Encourage ISS.
[2017-12-29 10:17] LABS: ANION GAP 10 MMOL/L (8-16); BLOOD UREA NITROGEN 20 mg/dL (7-18); CALCIUM 8.3 mg/dL (8.5-10.1); CO2 24 mmol/L (21-32); GLUCOSE,RANDOM 158 mg/dL (74-106)
--- NOTE | 2017-12-29 14:09 | PN ---
Teaching Attending Note Name of Resident: Julia Childress ATTENDING PHYSICIAN STATEMENT I saw and evaluated the patient. I reviewed the resident's note and discussed the case with the resident. I agree with the resident's findings and plan as documented. SUBJECTIVE: No fever or chills. tolerated food. abd pain is mild. No N/V , no fever OBJECTIVE: NAD Cv: RRR, No MRG Lungs: CTAB Ext : no edema ABD: soft, minimal TTP in RUQ, . few small incisions ASSESSMENT AND PLAN: 72 y/o man with h/o HTN, HLP, And DM , who presented with abd pain and was found to have sepsis with evidence of cholecystitis. 1- Acute gangrenous cholecystitis: s/p CCY. wbc improved to 14 K today - cont zosyn. will d/w Dr. Kellogg, abx plan 2- HTN: cont home meds. losartan/HCTz 3- DM : cont SSI DC depends on Abx regimen
[2017-12-29] MEDS: LOSARTAN 50MG/HCTZ 12.5MG 1 TAB (FP) PO SCH (14:29)
--- NOTE | 2017-12-29 15:15 | PN ---
Progress Note, Physician History of Present Illness: patient doing well no new issues d/w surgery - Current Medication List Current Medications: Active Medications HCTZ/Losartan Potassium (Hyzaar -) 2 tab PO DAILY [facility] Last Admin: 12/29/17 14:29 Dose: 2 tab Heparin Sodium (Porcine) (Heparin -) 5,000 unit SQ TID [facility] Last Admin: 12/29/17 14:30 Dose: 5,000 unit Piperacillin Sod/Tazobactam (Sod 3.375 gm/ Dextrose) 50 mls @ 100 mls/hr IVPB Q8H-IV [facility] Last Admin: 12/29/17 09:17 Dose: 100 mls/hr Sodium Chloride (Normal Saline -) 1,000 mls @ 75 mls/hr IV ASDIR [facility] Last Admin: 12/29/17 05:50 Dose: 75 mls/hr Insulin Aspart (Novolog Vial Sliding Scale -) 1 vial SQ TIDAC [facility]; Protocol Last Admin: 12/29/17 11:52 Dose: Not Given Ondansetron HCl (Zofran Injection) 4 mg IVPUSH Q6H PRN PRN Reason: NAUSEA Last Admin: 12/28/17 22:04 Dose: 4 mg - Objective Vital Signs: Vital Signs Temperature 98.8 F 12/29/17 06:00 Pulse Rate 59 L 12/29/17 06:00 Respiratory Rate 18 12/29/17 06:00 Blood Pressure 144/80 12/29/17 06:00 O2 Sat by Pulse Oximetry (%) 96 12/28/17 21:00 Constitutional: Yes: No Distress, Calm Cardiovascular: Yes: Regular Rate and Rhythm Respiratory: Yes: Regular, CTA Bilaterally Gastrointestinal: Yes: Normal Bowel Sounds, Soft Musculoskeletal: Yes: WNL Extremities: Yes: WNL Neurological: Yes: Alert, Oriented Psychiatric: Yes: Alert, Oriented Labs: CBC, BMP 12/29/17 08:36 12/29/17 08:36 INR, PTT INR 1.28 (0.82-1.09) H 12/27/17 14:50 Assessment/Plan roblem List - Problems (1) Calculus gallbladder and bile duct w/acute cholecystitis and obstructn Code(s): K80.63 - CALCULUS OF GB AND BILE DUCT W ACUTE CHOLECYST W OBSTRUCTION (2) Leukocytosis Code(s): D72.829 - ELEVATED WHITE BLOOD CELL COUNT, UNSPECIFIED Qualifiers: Leukocytosis type: bandemia Qualified Code(s): D72.825 - Bandemia (3) Fever and chills Code(s): R50.9 - FEVER, UNSPECIFIED (4) Acute cholecystitis Code(s): K81.0 - ACUTE CHOLECYSTITIS (5) HTN (hypertension) Code(s): I10 - ESSENTIAL (PRIMARY) HYPERTENSION Qualifiers: Hypertension type: essential hypertension Qualified Code(s): I10 - Essential (primary) hypertension (6) HLD (hyperlipidemia) Code(s): E78.5 - HYPERLIPIDEMIA, UNSPECIFIED Qualifiers: Hyperlipidemia type: pure hypercholesterolemia Qualified Code(s): E78.00 - Pure hypercholesterolemia, unspecified; E78.0 - Pure hypercholesterolemia (7) Diabetes mellitus Code(s): E11.9 - TYPE 2 DIABETES MELLITUS WITHOUT COMPLICATIONS plan continue as per surgery continue current mgmt abx rest as per the team d/w surgery patient can be switched to augmentin from tomorrow for a period of 7 days
--- NOTE | 2017-12-29 16:39 | PN ---
Progress Note, Physician Chief Complaint: abdominal pain History of Present Illness: 72 yo male PMH HTN, HLD, DM who presents for evaluation of abdominal pain X 4days . The patient reports a 3 day history of poorly described upper abdominal pain that initial occurred after eating a Tuna sandwich. Stable posopertively overnight - Current Medication List Current Medications: Active Medications HCTZ/Losartan Potassium (Hyzaar -) 2 tab PO DAILY [facility] Last Admin: 12/29/17 14:29 Dose: 2 tab Heparin Sodium (Porcine) (Heparin -) 5,000 unit SQ TID [facility] Last Admin: 12/29/17 14:30 Dose: 5,000 unit Piperacillin Sod/Tazobactam (Sod 3.375 gm/ Dextrose) 50 mls @ 100 mls/hr IVPB Q8H-IV [facility] Last Admin: 12/29/17 09:17 Dose: 100 mls/hr Sodium Chloride (Normal Saline -) 1,000 mls @ 75 mls/hr IV ASDIR [facility] Last Admin: 12/29/17 05:50 Dose: 75 mls/hr Insulin Aspart (Novolog Vial Sliding Scale -) 1 vial SQ TIDAC [facility]; Protocol Last Admin: 12/29/17 11:52 Dose: Not Given Ondansetron HCl (Zofran Injection) 4 mg IVPUSH Q6H PRN PRN Reason: NAUSEA Last Admin: 12/28/17 22:04 Dose: 4 mg - Objective Vital Signs: Vital Signs Temperature 98.7 F 12/29/17 15:36 Pulse Rate 54 L 12/29/17 15:36 Respiratory Rate 17 12/29/17 15:36 Blood Pressure 144/73 12/29/17 15:36 O2 Sat by Pulse Oximetry (%) 96 12/29/17 10:00 Vital Signs Period Temp Pulse Resp BP Sys/Tiwari Pulse Ox Last 24 Hr 98.3 F-100.8 F 54-88 15-18 139-172/58-94 96-98 Constitutional: Yes: Well Nourished, No Distress, Calm Eyes: Yes: Conjunctiva Clear, EOM Intact HENT: Yes: Atraumatic, Normocephalic Neck: Yes: Supple, Trachea Midline Cardiovascular: Yes: Regular Rate and Rhythm, S1, S2 Respiratory: Yes: Regular, CTA Bilaterally Gastrointestinal: Yes: Normal Bowel Sounds, Soft, Tenderness Genitourinary: No: CVA Tenderness - Left, CVA Tenderness - Right Extremities: No: Cool, Cyanosis Wound/Incision: Yes: Clean/Dry, Well Approximated, Open to air, Other (Dermabond ) Neurological: Yes: Alert, Oriented Psychiatric: Yes: Alert, Oriented Labs: CBC, BMP 12/29/17 08:36 12/29/17 08:36 INR, PTT INR 1.28 (0.82-1.09) H 12/27/17 14:50 Problem List - Problems (1) Calculus gallbladder and bile duct w/acute cholecystitis and obstructn Assessment/Plan: 72yo male with Acute calculous cholecystits, CBD 0.7 POD#1 s/p Laparoscopic cholecystectomy for gangenous cholecystitis Advance diet as tolerated IV antibiotics per ID Glycemic control Adequate analgesia OOB and ambulate Encourage IS Discharge planning at the discretion of the primary team will follow Code(s): K80.63 - CALCULUS OF GB AND BILE DUCT W ACUTE CHOLECYST W OBSTRUCTION (2) Leukocytosis Code(s): D72.829 - ELEVATED WHITE BLOOD CELL COUNT, UNSPECIFIED Qualifiers: Leukocytosis type: bandemia Qualified Code(s): D72.825 - Bandemia (3) Fever and chills Code(s): R50.9 - FEVER, UNSPECIFIED (4) Acute cholecystitis Code(s): K81.0 - ACUTE CHOLECYSTITIS (5) HTN (hypertension) Code(s): I10 - ESSENTIAL (PRIMARY) HYPERTENSION Qualifiers: Hypertension type: essential hypertension Qualified Code(s): I10 - Essential (primary) hypertension (6) HLD (hyperlipidemia) Code(s): E78.5 - HYPERLIPIDEMIA, UNSPECIFIED Qualifiers: Hyperlipidemia type: pure hypercholesterolemia Qualified Code(s): E78.00 - Pure hypercholesterolemia, unspecified; E78.0 - Pure hypercholesterolemia (7) Diabetes mellitus Code(s): E11.9 - TYPE 2 DIABETES MELLITUS WITHOUT COMPLICATIONS
--- NOTE | 2017-12-29 17:01 | PN ---
Physical Exam: SUBJECTIVE: Patient seen and examined at bedside. No acute events overnight. Pt complains of mild abdominal discomfort, but pain controlled. OBJECTIVE: Vital Signs Temperature 98.7 F 12/29/17 15:36 Pulse Rate 54 L 12/29/17 15:36 Respiratory Rate 17 12/29/17 15:36 Blood Pressure 144/73 12/29/17 15:36 O2 Sat by Pulse Oximetry (%) 96 12/29/17 10:00 GENERAL: Awake, alert, and fully oriented, in no acute distress. HEENT: AT/NC. EOMI. Moist mucus membranes. NECK: Supple, no LAD, JVD. LUNGS: CTA B/L, No wheezes, rhonchi, rales noted. HEART: Regular rate and rhythm, normal S1 and S2 without murmur, rub or gallop. ABDOMEN: Soft LUQ/LLQ, +mild diffuse abdominal tenderness, mildly distended LUQ/ LLQ, normoactive bowel sounds, no guarding, no rebound, no masses. MUSCULOSKELETAL: Normal range of motion at all joints. No bony deformities or tenderness. No CVA tenderness. UPPER EXTREMITIES: 2+ pulses, warm, well-perfused. No cyanosis. No clubbing. No peripheral edema. LOWER EXTREMITIES: 2+ pulses, warm, well-perfused. No calf tenderness. No peripheral edema. NEUROLOGICAL: Cranial nerves II-XII intact. Normal speech. Normal gait. PSYCHIATRIC: Cooperative. Good eye contact. Appropriate mood and affect. SKIN: Warm, dry, normal turgor, no rashes or lesions. CBC, BMP 12/29/17 08:36 12/29/17 08:36 Hepatic Panel Total Bilirubin 0.6 mg/dL (0.2-1.0) 12/28/17 07:56 Direct Bilirubin 0.2 mg/dL (0.0-0.2) 12/28/17 07:56 AST 20 U/L (15-37) 12/28/17 07:56 ALT 27 U/L (12-78) 12/28/17 07:56 Alkaline Phosphatase 74 U/L (45-117) 12/28/17 07:56 Albumin 3.2 g/dl (3.4-5.0) L 12/28/17 07:56 Active Medications HCTZ/Losartan Potassium (Hyzaar -) 2 tab PO DAILY [facility] Last Admin: 12/29/17 14:29 Dose: 2 tab Heparin Sodium (Porcine) (Heparin -) 5,000 unit SQ TID [facility] Last Admin: 12/29/17 14:30 Dose: 5,000 unit Piperacillin Sod/Tazobactam (Sod 3.375 gm/ Dextrose) 50 mls @ 100 mls/hr IVPB Q8H-IV [facility] Last Admin: 12/29/17 09:17 Dose: 100 mls/hr Sodium Chloride (Normal Saline -) 1,000 mls @ 75 mls/hr IV ASDIR [facility] Last Admin: 12/29/17 05:50 Dose: 75 mls/hr Insulin Aspart (Novolog Vial Sliding Scale -) 1 vial SQ TIDAC [facility]; Protocol Last Admin: 12/29/17 11:52 Dose: Not Given Ondansetron HCl (Zofran Injection) 4 mg IVPUSH Q6H PRN PRN Reason: NAUSEA Last Admin: 12/28/17 22:04 Dose: 4 mg IMAGING: RUQ US showed acute calculus cholecytitis, CBD appears slightly dilated MRCP showed no choledocholithiasis, awaiting further surgical recommendations ASSESSMENT/PLAN: Patient is a 72 year old male with past medical history of DM, HTN, and HLD presented with sudden RUQ pain beginning 12/25. #Acute Cholecystitis; s/p cholecystectomy POD #1. Afebrile. Pt doing well and tolerating diet. +Flatus, but no BM yet. -Per surg, pt was found to have a gangrenous GB -currently on Zosyn 50 cc @ 100cc/hr IVPB Q8H -Per ID: can start PO Augmentin tomorrow x7 days -Will continue to correct hypoNa and hypoK with KCl/NS #DM: chronic, glu 156 -hold home medications -ISS -monitor BGM ACHS #Hypertension: chronic -continue home Losartan 100/HCTZ 25 (have to give as Losartan 50/HCTZ 12.5 x 2 per pharmacy) 2 tab PO QD #FEN -NS @ 75cc/hr -routine BMP monitoring -diabetic/sodium diet #Prophylaxis -Heparin 5000U SQ TID #Disposition -admit to med-surg -full code Visit type - Emergency Visit Emergency Visit: Yes ED Registration Date: 12/27/17 Care time: The patient presented to the Emergency Department on the above date and was hospitalized for further evaluation of their emergent condition. - New Patient This patient is new to me today: Yes Date on this admission: 12/29/17 - Critical Care Critical Care patient: No
[2017-12-29] MEDS ORDERED: ACETAMINOPHEN 1000 MG/100 ML VIAL (NON FORMULARY) IVPB PRN (19:18)
--- NOTE | 2017-12-29 19:55 | OP ---
DATE OF OPERATION: 12/27/2017 PREOPERATIVE DIAGNOSIS: Acute cholecystitis. POSTOPERATIVE DIAGNOSIS: Acute gangrenous cholecystitis. PROCEDURE: Laparoscopic cholecystectomy. ATTENDING SURGEON: Mickey Rose MD MACHINE INKER: GOYO Faust ANESTHESIOLOGIST: Yonathan Jacob MD ANESTHESIA: General with local, local consisting of 0.5% Marcaine, a total of 10 mL, given in area block fashion at the port sites. ESTIMATED BLOOD LOSS: 20 mL. IV FLUID ADMINISTERED: 700 mL crystalloid. SPECIMEN: Gallbladder with stones. BRIEF FINDINGS: The patient had a gangrenous gallbladder, with 60 mL of green bile was decompressed. Critical view was identified. All counts were correct postoperatively. INDICATION: The patient is a 72-year-old male, he is a diabetic, presenting with abdominal pain. Ultrasound and MRI confirmed acute cholecystitis without apparent gangrenous changes. He was counseled regarding risks, benefits, and alternatives to surgical procedure, signed informed consent and was taken for the procedure. PROCEDURE: The patient was brought to the operating room, placed in supine position on the operating table. Lower extremities had SCDs placed to compression. He was induced with general anesthesia, endotracheally intubated without incident by Anesthesia. Anterior abdominal wall was prepped and draped in a standard surgical field, at which point we began with a formal timeout, identifying the operative site and procedure, with all parties in agreement. We began first with a supraumbilical approach for Pollo entry. It was incised with a 15 blade scalpel, deepened and widened through subcutaneous tissue. Care was taken to dissect down to the anterior fascia, which was elevated and then entered bluntly with a Crile into the abdomen towards the umbilicus. With this cleared, a finger was used to clear the anterior attachments of abdomen viscera, at which point the Pollo port was installed and a pneumoperitoneum was established to 15 mmHg. We began first with inspection of the entry site. It appeared atraumatic. We began first then to install additional 3 operative ports, one at the xiphoid position and two in the right lateral abdomen. We began first then to identify the gallbladder's dome. There was apparent patchy gangrenous changes throughout the wall on the serosal surface. The gallbladder was decompressed of 60 mL of green bile using a decompression needle, at which point the dome of the gallbladder was controlled and retracted cranially and towards the left shoulder. The additional retraction allowed for dissection of the cystic structures from the xiphoid position. The cystic duct and artery were both identified, identifying the critical view. Planes were developed and isolated them and then 5-mm clips were used to control them and they were divided, at which point, once divided, the gallbladder itself was elevated from the hepatic bed. There was bile staining of the hepatic bed itself and some purulent peel was also identified. The gallbladder itself was taken in its entirety with Bovie cautery from the liver bed, and then retrieved from the umbilicus using an EndoCatch bag, 10 mm, after re-siting the camera to the subxiphoid position. Once completely removed from the abdomen, we then turned our attention to obtaining hemostasis throughout the area of dissection. The abdomen was irrigated and suctioned of all bile and blood. Hemostasis was obtained using Bovie cautery along the hepatic edge. The trocars were then removed under direct visualization and pneumoperitoneum was relieved. The skin was cleaned, sterile dressings were placed. The umbilicus was closed using a 0 Vicryl using a [id number] to obliterate the space. The skin was closed using 4-0 Vicryl in subcuticular fashion. The skin was cleaned, sterile dressings were placed, as noted, including Dermabond. Local was also administered preoperatively. The patient was awoken from general anesthesia, having tolerated the procedure well. He was taken to recovery in stable condition after being extubated in the operating room. MD OWEN Miles/[id number]
[2017-12-29] MEDS: ACETAMINOPHEN 325 MG TABLET (FP) PO PRN (21:59)
[2017-12-30] MEDS ORDERED: DEXTROSE 5%-WATER - 50 ML IVPB ONE (02:11)
[2017-12-30] MEDS ORDERED: PIPERACILLIN/TAZOBACTAM 3.375 GM VIAL IVPB ONE ×2 (02:11→02:16)
[2017-12-30] MEDS: PIPERACILLIN/TAZOB 3.375 GM 3.375 GM in DEXTROSE 5%-WATER - 50 ML IVPB SCH (02:32)
[2017-12-30] MEDS: ACETAMINOPHEN 325 MG TABLET (FP) PO PRN ×2 (02:32→06:47)
[2017-12-30] MEDS: INSULIN SLIDING SCALE (NOVOLOG) 1 VIAL SQ SCH ×2 (06:31→11:47)
[2017-12-30] MEDS: HEPARIN NA (PORCINE) 5,000 UNITS/ML 1ML VIAL SQ SCH ×2 (06:32→13:23)
[2017-12-30 09:09] VITALS: BP 160/79; PULSE 53; TEMP 97.8
--- NOTE | 2017-12-30 09:21 | PN ---
Progress Note, Physician Chief Complaint: abdominal pain History of Present Illness: 72 yo male PMH HTN, HLD, DM who presents for evaluation of abdominal pain X 4days . The patient reports a 3 day history of poorly described upper abdominal pain that initial occurred after eating a Tuna sandwich. Stable postoperatively, but reports feeling "queasy". - Current Medication List Current Medications: Active Medications Acetaminophen (Tylenol -) 650 mg PO Q4H PRN PRN Reason: PAIN LEVEL 1 - 3 Last Admin: 12/30/17 06:47 Dose: 650 mg HCTZ/Losartan Potassium (Hyzaar -) 2 tab PO DAILY [facility] Last Admin: 12/29/17 14:29 Dose: 2 tab Heparin Sodium (Porcine) (Heparin -) 5,000 unit SQ TID [facility] Last Admin: 12/30/17 06:32 Dose: Not Given Piperacillin Sod/Tazobactam (Sod 3.375 gm/ Dextrose) 50 mls @ 100 mls/hr IVPB Q8H-IV [facility] Last Admin: 12/30/17 02:32 Dose: 100 mls/hr Sodium Chloride (Normal Saline -) 1,000 mls @ 75 mls/hr IV ASDIR [facility] Last Admin: 12/29/17 21:58 Dose: 75 mls/hr Insulin Aspart (Novolog Vial Sliding Scale -) 1 vial SQ TIDAC [facility]; Protocol Last Admin: 12/30/17 06:31 Dose: Not Given Ondansetron HCl (Zofran Injection) 4 mg IVPUSH Q6H PRN PRN Reason: NAUSEA Last Admin: 12/28/17 22:04 Dose: 4 mg - Objective Vital Signs: Vital Signs Temperature 97.8 F 12/30/17 09:08 Pulse Rate 53 L 12/30/17 09:08 Respiratory Rate 20 12/30/17 09:08 Blood Pressure 160/79 12/30/17 09:08 O2 Sat by Pulse Oximetry (%) 96 12/29/17 21:00 Vital Signs Period Temp Pulse Resp BP Sys/Tiwari Pulse Ox Last 24 Hr 97.8 F-98.7 F 53-59 17-20 143-172/50-82 96-96 Constitutional: Yes: Well Nourished, No Distress, Calm Eyes: Yes: Conjunctiva Clear, EOM Intact HENT: Yes: Atraumatic, Normocephalic Neck: Yes: Supple, Trachea Midline Cardiovascular: Yes: Regular Rate and Rhythm, S1, S2 Respiratory: Yes: Regular, CTA Bilaterally Gastrointestinal: Yes: Normal Bowel Sounds, Soft Genitourinary: No: CVA Tenderness - Left, CVA Tenderness - Right Extremities: No: Cool, Cyanosis Edema: No Peripheral Pulses WNL: Yes Peripheral Pulses: Left Radial: 2+, Right Radial: 2+, Left Doralis Pedis: 2+, Right Dorsalis Pedis: 2+ Integumentary: No: Jaundice, Rash, Skin Tear Wound/Incision: Yes: Clean/Dry, Well Approximated, Open to air Neurological: Yes: Alert, Oriented Psychiatric: Yes: Alert, Oriented Labs: CBC, BMP 12/29/17 08:36 12/29/17 08:36 INR, PTT INR 1.28 (0.82-1.09) H 12/27/17 14:50 Problem List - Problems (1) Calculus gallbladder and bile duct w/acute cholecystitis and obstructn Assessment/Plan: 72yo male with Acute calculous cholecystits, CBD 0.7 POD#2 s/p Laparoscopic cholecystectomy for gangenous cholecystitis Advance diet as tolerated IV antibiotics per ID Glycemic control Adequate analgesia Scheduled ZOFRAN until tuesday OOB and ambulate Encourage IS Discharge planning at the discretion of the primary team will follow Code(s): K80.63 - CALCULUS OF GB AND BILE DUCT W ACUTE CHOLECYST W OBSTRUCTION (2) Leukocytosis Code(s): D72.829 - ELEVATED WHITE BLOOD CELL COUNT, UNSPECIFIED Qualifiers: Leukocytosis type: bandemia Qualified Code(s): D72.825 - Bandemia (3) Fever and chills Code(s): R50.9 - FEVER, UNSPECIFIED (4) Acute cholecystitis Code(s): K81.0 - ACUTE CHOLECYSTITIS (5) HTN (hypertension) Code(s): I10 - ESSENTIAL (PRIMARY) HYPERTENSION Qualifiers: Hypertension type: essential hypertension Qualified Code(s): I10 - Essential (primary) hypertension (6) HLD (hyperlipidemia) Code(s): E78.5 - HYPERLIPIDEMIA, UNSPECIFIED Qualifiers: Hyperlipidemia type: pure hypercholesterolemia Qualified Code(s): E78.00 - Pure hypercholesterolemia, unspecified; E78.0 - Pure hypercholesterolemia (7) Diabetes mellitus Code(s): E11.9 - TYPE 2 DIABETES MELLITUS WITHOUT COMPLICATIONS
[2017-12-30] MEDS ORDERED: AMOX TR/POT CLAV 875MG/125MG TABLETS (FP) PO ONE (09:24)
[2017-12-30] MEDS ORDERED: PT OWN MED DRAWER 7, Y5N ONE (10:23)
[2017-12-30] MEDS: LOSARTAN 50MG/HCTZ 12.5MG 1 TAB (FP) PO SCH (10:35)
[2017-12-30] MEDS ORDERED: ONDANSETRON 4 MG/2 ML VIAL IVPUSH SCH (11:00)
[2017-12-30 11:20] LABS: BASO % 0.2 % (0-2.0); EOS % 2.3 % (0-4.5); HEMATOCRIT 34.4 % (35.4-49); HEMOGLOBIN 11.3 GM/dL (11.7-16.9); LYMPH % 9.3 % (8-40); MCH 27.9 pg (25.7-33.7); MCHC 32.9 g/dl (32.0-35.9); MEAN CELL VOLUME 84.8 fl (80-96); MEAN PLT VOLUME 9.4 fl (7.5-11.1); MONO % 7.7 % (3.8-10.2); NEUT % 80.5 % (42.8-82.8); PLATELET COUNT 208 K/MM3 (134-434); RBC 4.06 M/mm3 (4.00-5.60); RDW 14.4 % (11.9-15.9); WHITE BLOOD COUNT 8.1 K/mm3 (4.0-10.0)
--- NOTE | 2017-12-30 11:43 | PN ---
Progress Note, Physician History of Present Illness: reports of feeling queezy does not feel too well - Current Medication List Current Medications: Active Medications Acetaminophen (Tylenol -) 650 mg PO Q4H PRN PRN Reason: PAIN LEVEL 1 - 3 Last Admin: 12/30/17 06:47 Dose: 650 mg HCTZ/Losartan Potassium (Hyzaar -) 2 tab PO DAILY [facility] Last Admin: 12/30/17 10:35 Dose: 2 tab Heparin Sodium (Porcine) (Heparin -) 5,000 unit SQ TID [facility] Last Admin: 12/30/17 06:32 Dose: Not Given Sodium Chloride (Normal Saline -) 1,000 mls @ 75 mls/hr IV ASDIR [facility] Last Admin: 12/29/17 21:58 Dose: 75 mls/hr Insulin Aspart (Novolog Vial Sliding Scale -) 1 vial SQ TIDAC [facility]; Protocol Last Admin: 12/30/17 06:31 Dose: Not Given Ondansetron HCl (Zofran Injection) 4 mg IVPUSH Q8H [facility] Stop: 01/01/18 23:59 - Objective Vital Signs: Vital Signs Temperature 97.8 F 12/30/17 09:08 Pulse Rate 53 L 12/30/17 09:08 Respiratory Rate 20 12/30/17 09:08 Blood Pressure 160/79 12/30/17 09:08 O2 Sat by Pulse Oximetry (%) 96 12/29/17 21:00 Constitutional: Yes: Calm, Other Cardiovascular: Yes: Regular Rate and Rhythm Respiratory: Yes: Regular, CTA Bilaterally Gastrointestinal: Yes: Normal Bowel Sounds, Soft Musculoskeletal: Yes: WNL Extremities: Yes: WNL Wound/Incision: Yes: Clean/Dry Psychiatric: Yes: Alert, Oriented Labs: CBC, BMP 12/30/17 11:04 12/29/17 08:36 INR, PTT INR 1.28 (0.82-1.09) H 12/27/17 14:50 Assessment/Plan roblem List - Problems (1) Calculus gallbladder and bile duct w/acute cholecystitis and obstructn Code(s): K80.63 - CALCULUS OF GB AND BILE DUCT W ACUTE CHOLECYST W OBSTRUCTION (2) Leukocytosis Code(s): D72.829 - ELEVATED WHITE BLOOD CELL COUNT, UNSPECIFIED Qualifiers: Leukocytosis type: bandemia Qualified Code(s): D72.825 - Bandemia (3) Fever and chills Code(s): R50.9 - FEVER, UNSPECIFIED (4) Acute cholecystitis Code(s): K81.0 - ACUTE CHOLECYSTITIS (5) HTN (hypertension) Code(s): I10 - ESSENTIAL (PRIMARY) HYPERTENSION Qualifiers: Hypertension type: essential hypertension Qualified Code(s): I10 - Essential (primary) hypertension (6) HLD (hyperlipidemia) Code(s): E78.5 - HYPERLIPIDEMIA, UNSPECIFIED Qualifiers: Hyperlipidemia type: pure hypercholesterolemia Qualified Code(s): E78.00 - Pure hypercholesterolemia, unspecified; E78.0 - Pure hypercholesterolemia (7) Diabetes mellitus Code(s): E11.9 - TYPE 2 DIABETES MELLITUS WITHOUT COMPLICATIONS plan continue as per surgery continue current mgmt abx rest as per the team d/w surgery patient can be switched to augmentin f for a period of 7 days
[2017-12-30] MEDS ORDERED: INSULIN (NOVOLOG) ASPART 100 UNITS/ML 10ML VIAL ONE (11:46)
--- NOTE | 2017-12-30 12:26 | DS ---
Physical Exam: SUBJECTIVE: Patient seen and examined. No acute events overnight OBJECTIVE: Vital Signs Period Temp Pulse Resp BP Sys/Tiwari Pulse Ox Last 24 Hr 97.8 F-98.7 F 53-59 17-20 143-160/50-79 96 PHYSICAL EXAM GENERAL: Awake, alert, and fully oriented, in no acute distress. HEENT: AT/NC. EOMI. Moist mucus membranes. NECK: Supple, no LAD, JVD. LUNGS: CTA B/L, No wheezes, rhonchi, rales noted. HEART: Regular rate and rhythm, normal S1 and S2 without murmur, rub or gallop. ABDOMEN: Soft LUQ/LLQ, +mild diffuse abdominal tenderness, mildly distended LUQ/ LLQ, normoactive bowel sounds, no guarding, no rebound, no masses. MUSCULOSKELETAL: Normal range of motion at all joints. No bony deformities or tenderness. No CVA tenderness. UPPER EXTREMITIES: 2+ pulses, warm, well-perfused. No cyanosis. No clubbing. No peripheral edema. LOWER EXTREMITIES: 2+ pulses, warm, well-perfused. No calf tenderness. No peripheral edema. NEUROLOGICAL: Cranial nerves II-XII intact. Normal speech. Normal gait. PSYCHIATRIC: Cooperative. Good eye contact. Appropriate mood and affect. SKIN: Warm, dry, normal turgor, no rashes or lesions. LABS Laboratory Results - last 24 hr 12/29/17 12/30/17 12/30/17 18:02 06:31 11:04 WBC 8.1 RBC 4.06 Hgb 11.3 L Hct 34.4 L MCV 84.8 MCH 27.9 MCHC 32.9 RDW 14.4 Plt Count 208 MPV 9.4 Absolute Neuts (auto) 6.5 Neutrophils % 80.5 Lymphocytes % 9.3 D Monocytes % 7.7 Eosinophils % 2.3 D Basophils % 0.2 Nucleated RBC % 0 POC Glucometer 215 128 12/30/17 11:30 WBC RBC Hgb Hct MCV MCH MCHC RDW Plt Count MPV Absolute Neuts (auto) Neutrophils % Lymphocytes % Monocytes % Eosinophils % Basophils % Nucleated RBC % POC Glucometer 211 HOSPITAL COURSE: Date of Admission:12/27/17 IMAGING: RUQ US showed acute calculus cholecytitis, CBD appears slightly dilated MRCP showed no choledocholithiasis 72M with past medical history of DM, HTN, and HLD presented with sudden RUQ pain beginning 12/25 s/p laparoscopic cholescystectomy. During procedure, pt was found to have a gangrenous GB. Post-op, pt was started on Zosyn. During his hospital stay, he had no complications and tolerated diet. Pt was subsequently discharged home with PO Augmentin per ID recommendation and with instructions to follow up for his post op appointment with surgery. Date of Discharge: 12/30/17 Minutes to complete discharge: 35 Discharge Summary Reason For Visit: ACUTE MICHAEL Current Active Problems Acute gangrenous cholecystitis (Acute) Calculus gallbladder and bile duct w/acute cholecystitis and obstructn (Acute) Diabetes mellitus (Acute) Fever and chills (Acute) HLD (hyperlipidemia) (Acute) HTN (hypertension) (Acute) Leukocytosis (Acute) Condition: Improved - Instructions Diet, Activity, Other Instructions: Postoperative instructions: You had a laparoscopic cholecystectomy on 12/28/[address] Mickey Rose of [facility]. Activity: Resume your usual activities gradually, but no heavy exertion or lifting more than 10-15 pounds for 1 month. Remove dressings 48 hours after surgery; sticky tapes underneath will fall off by themselves. You may shower daily starting then, just pat the incision areas dry. No bath or swimming until skin incisions have healed. Eat lightly at first, but advance to your usual diet as tolerated. Pain: For pain, you may use and alternate Tylenol (acetaminophen) 1-2 pills and/ or ibuprofen 200 mg (1-3 pills) every 6 hours each as needed; this means that you can take one OR the other at 3-hour intervals. If you are prescribed a Tylenol/narcotic combination for severe pain, use it instead of plain Tylenol as needed and switch back when your pain starts decreasing. Do not take more than 4000mg of acetaminophen in a day. Take medications as prescribed or indicated on the labeling. Follow-up: Call Dr. Rose' office at [phone] to make your postop appointment (Tuesday in approximately 2 weeks after surgery). Clinic is held in the [facility] on the first floor of [facility]. Call the office if you have: * increasing pain not responsive to pain medication * fever of 101F or higher * vomiting * unusual or increasing bleeding or drainage from wounds * increasing redness or swelling at wound sites * inability to urinate Also, see your primary medical doctor within 1-2 weeks. Referrals: Mickey Rose MD [Staff Physician] - 2 Weeks Disposition: HOME - Home Medications Comprehensive Discharge Medication List: Ambulatory Orders metFORMIN HCL [Metformin HCl] 2 gm PO DAILY 03/26/16 Atorvastatin Ca [Lipitor] 40 mg PO HS 12/27/17 Glimepiride 4 mg PO DAILY 12/27/17 Losartan/Hydrochlorothiazide [Losartan-Hctz 100-25 mg Tab] 1 each PO DAILY 12/27 Amoxicillin/Potassium Clav [Augmentin 875-125 Tablet] 1 each PO Q12H #14 tablet 12/30/17 This patient is new to me today: No Emergency Visit: Yes ED Registration Date: 12/27/17 Care time: The patient presented to the Emergency Department on the above date and was hospitalized for further evaluation of their emergent condition. Critical Care patient: No - Discharge Referral Referred to [facility] Med P.C.: No
--- NOTE | 2017-12-30 14:22 | SURG ---
Surgery Proof Passer Note Proof Passer: Laurie Garcia PA-C Date of Service: 12/28/17 Diagnosis: Acute cholecystitis Procedure: Laparoscopic Cholecystectomy I was present for the entirety of the operative procedure. For further detail, please refer to operative report. Visit type - Case Type Case Type: ED Admission - Emergency Emergency Visit: Yes ED Registration Date: 12/27/17 Care time: The patient presented to the Emergency Department on the above date and was hospitalized for further evaluation of their emergent condition. - New patient This patient is new to me today: Yes Date on this admission: 12/28/17
--- NOTE | 2017-12-30 18:02 | PATH ---
Surgical Pathology Report Patient Name: FELICITA HAYS Med. Rec. #: [id number] /Age/Gender: 1945 (Age: 72) / M Account: [id number] Location: [address] [place] [address]/[facility] Taken: 12/28/2017 Received: 12/29/2017 Reported: 12/30/2017 Physicians: Jerod Miles MD Specimen(s) Received GALLBLADDER Clinical History Cholecystitis, cholelithiasis Final Diagnosis GALLBLADDER, LAPAROSCOPIC CHOLECYSTECTOMY: ACUTE GANGRENOUS CHOLECYSTITIS AND CHOLELITHIASIS. Electronically Signed Molly Cervantes M.D. Gross Description Received in formalin, labeled "gallbladder," is a 8.3 x 3.8 x 2.0 cm. gallbladder with a 0.2 cm. in length portion of cystic duct attached. The outer surface is kaur-green and necrotic with a focal defect. The lumen contains kaur bile as well as 2 black irregular choleliths measuring 0.6 and 0.7 cm in greatest dimension. The mucosa is green and necrotic. The wall of the gallbladder averages 0.3 cm. in thickness. [employer] sections are submitted in one cassette. /12/29/2017 [facility]12/29/2017
--- NOTE | 2017-12-30 19:23 | PN ---
Teaching Attending Note Name of Resident: Julia Childress ATTENDING PHYSICIAN STATEMENT I saw and evaluated the patient. I reviewed the resident's note and discussed the case with the resident. I agree with the resident's findings and plan as documented. SUBJECTIVE: seen at 8;30 am minimal abd pain , had Bm OBJECTIVE: NAD Cv: RRR, No MRG Lungs: CTAB Ext : no edema ABD: soft, minimal TTP in RUQ, . few small incisions ASSESSMENT AND PLAN: 72 y/o man with h/o HTN, HLP, And DM , who presented with abd pain and was found to have sepsis with evidence of cholecystitis. 1- Acute gangrenous cholecystitis: s/p CCY. - switch to augmentin x 14 days 2- HTN: cont home meds. losartan/HCTz 3- DM : cont home meds Dc home . f/u with surgery
== END 2017-12-30 14:17 | disposition home or self-care (01) | DRG 418 ==
LOC: FER 14:05 → J5S 22:21
PROVIDERS: ADMIT Internal Medicine; ATTEND Internal Medicine
PROC: 0FT44ZZ Resection of Gallbladder, Percutaneous Endoscopic Approach (ICD-10-PCS; principal; 2017-12-27)
DX: K80.63 Calculus of gallbladder and bile duct with acute cholecystitis with obstruction (principal); E87.1 Hypo-osmolality and hyponatremia; I10 Essential (primary) hypertension; E87.6 Hypokalemia; E78.5 Hyperlipidemia, unspecified; E11.9 Type 2 diabetes mellitus without complications; R10.11 Right upper quadrant pain; D72.825 Bandemia; D72.829 Elevated white blood cell count, unspecified; R50.9 Fever, unspecified
CPT/HCPCS: 36415; 74181-TC; 76705-TC; 80048; 80053; 80076; 81003; 81015; 82550; 82962; 83605; 83690; 83735; 84100; 84484; 85025; 85027; 85610; 85730; 86850; 86900; 86901; 87040; 87086; 88304-TC; 93005; 94010; 94760; 99285-25; J0131; J1644; J7030